=== PATIENT | female | born 1955 | race Caucasian/White ===

== ENCOUNTER 2016-06-09 13:16 | Emergency (ER) | payer OTHER ==
[~2016-06-09] VITALS: Ht 172.7 cm; Wt 65.3 kg
[~2016-06-09 13:16] MED LIST: ULTRAM50 MG PO; [UNRECOGNIZED DRUG - REMARK]; [UNRECOGNIZED DRUG - REMARK]; [UNRECOGNIZED DRUG - REMARK]
[2016-06-09 13:41] LABS: ADD MIUA? NO; BILIRUBIN NEGATIVE; BLOOD NEGATIVE; COLOR YELLOW ((YELLOW)); GLUCOSE (STRIP) NEGATIVE; KETONES 5; LEUKOCYTES NEGATIVE; NITRITE NEGATIVE; PROTEIN (STRIP) NEGATIVE; UCUL ADDED? NO; UROBILINOGEN 0.2 MG/DL (0.2-1.0)
[2016-06-09 14:07] LABS: HEMATOCRIT 43.4 % (36.0-46.0); MCH 28.7 PG (29.0-34.0); MCHC 32.7 G/DL (30.0-36.0); MCV 87.9 FL (83-99); PLATELET COUNT 316 K/uL (156-360); RBC DIS.WIDTH-SD 41.9 % (39-53); RED BLOOD COUNT 4.94 M/uL (3.80-5.20)
[2016-06-09 14:09] LABS: WHITE BLOOD COUNT 7.1 K/uL (4.1-10.2)
[2016-06-09 14:18] LABS: CHLORIDE 98 mEq/L (99-109); POTASSIUM 4.8 mEq/L (3.7-5.4); SODIUM 134 mEq/L (136-147)
[2016-06-09 14:20] LABS: GLUCOSE 111 mg/dL (70-99)
[2016-06-09 14:21] LABS: ANION GAP 12 MEQ/L (2-14)
[2016-06-09 14:22] LABS: TOTAL BILIRUBIN 0.8 mg/dL (0.0-1.0)
[2016-06-09 14:24] LABS: ALKALINE PHOSPHATASE 50 IU/L (3-129); GFR ESTIMATE (CALCULATED) > 59 mL/min/
[2016-06-09 14:25] LABS: UREA NITROGEN (BUN) 8 mg/dL (9-23)
[2016-06-09 14:27] LABS: LIPASE 24 U/L (1.0-51.0)
[2016-06-09] MEDS ORDERED: PERCOCET 5/31 TABLET PO (16:06)
[2016-06-09 16:37] VITALS: BP 153/104
== END 2016-06-09 16:38 | disposition home or self-care (01) ==
LOC: EME 13:16
DX: R10.32 Left lower quadrant pain (principal)
CPT/HCPCS: 80053; 81003; 83690; 85027; 99281; 99284